=== PATIENT | male | born 1980 | race Caucasian/White ===

== ENCOUNTER → 2017-06-12 16:27 | Outpatient (CLI) | payer OTHER, SELFPAY ==
[2017-06-12 16:45] LABS: Basophils # 0.1 K/mm3 (0-0.2); Basophils % 0.7 % (0.1-2.0); Eosinophils # 0.5 K/mm3 (0.0-0.4); Eosinophils % 4.9 % (0.1-12.0); Hematocrit 46.5 % (42.0-52.0); Hemoglobin 15.2 g/dL (14.1-18.0); Lymphocytes # 1.9 K/mm3 (0.7-4.5); Lymphocytes % 18.8 K/mm3 (10-50); Mean Corpuscular HGB Conc 32.7 g/dL (31.8-35.4); Mean Corpuscular Hemoglobin 31.8 pg (27.0-31.2); Mean Corpuscular Volume 97.1 fl (80-94); Mean Platelet Volume 8.4 fl (7.4-10.4); Monocytes # 0.5 K/mm3 (0.1-1.0); Monocytes % 4.4 % (1.7-9.3); Neutrophils # 7.2 K/mm3 (1.8-7.8); Neutrophils % 71.1 % (37.0-80.0); Platelet Count 198 K/mm3 (142-424); Red Blood Count 4.79 M/mm3 (4.60-6.20); Red Cell Distribution Width 12.7 % (11.5-17.5); White Blood Count 10.1 K/mm3 (4.8-10.8)
[2017-06-12 18:13] LABS: Erythrocyte Sedimentation Rate 10 mm/hr (0-15)
[2017-06-12 19:47] LABS: Alanine Aminotransferase 32 U/L (12-78); Albumin Level 3.8 gm/dL (3.4-5.0); Alkaline Phosphatase 73 U/L (46-116); Anion Gap 14.6 mEq/L (5-15); Bilirubin,Total 0.4 mg/dL (0.2-1.0); Blood Urea Nitrogen 13 mg/dL (7-18); Calcium 8.5 mg/dL (8.5-10.1); Carbon Dioxide 27 mmol/L (21.0-32.0); Chloride 105 mmol/L (98-107); Creatinine,Serum 1.01 mg/dL (0.70-1.30); Estimated Glomerular Filt Rate 83 ml/min (>60); GFR (African American) 101 ML/MIN (>60); Globulin 3.7 gm/dl (1.3-3.2); Glucose 76 mg/dL (74-106); Sodium 142 mmol/L (136-145); Total Protein,Serum 7.5 gm/dL (6.4-8.2)
[2017-06-12 20:01] LABS: Aspartate Amino Transferase 23 U/L (15-37); C-Reactive Protein < 0.2 mg/L (0.0-0.9); Potassium 4.6 mmoL/L (3.5-5.1)
== END ==
PROVIDERS: Family Provider Physician Assistant; PCP Family Medicine; Visit Provider Podiatrist
DX: L03.90 Cellulitis, unspecified (principal)
CPT/HCPCS: 36415; 80053; 85025; 85651; 86140

== ENCOUNTER → 2017-10-08 15:19 | Outpatient (POV) | payer OTHER, SELFPAY | PROVIDERS: Family Provider Physician Assistant; PCP Family Medicine | DX: Z00.00 Encounter for general adult medical examination without abnormal findings (principal) ==

== ENCOUNTER → 2018-08-19 08:14 | Outpatient (CLI) | payer OTHER, SELFPAY ==
--- NOTE | 2018-08-19 08:20 | US_ITS ---
US abdomen limited HISTORY: Right upper quadrant pain chest pain 5 days. ORDERING PHYSICIAN: Amy Ruiz PATIENT AGE: 38 years Comparison: None no comparison studies Procedure Sagittal, transverse and decubitus imaging of the gallbladder was performed. Findings GALLBLADDER - borderline distended gallbladder but does not appear to be tense or inflamed. Phrygian cap. No gallstones. Trace sludge. No discrete. Normal/Upper normal gallbladder wall thickness in some areas. Common duct is normal in diameter. Liver: . Liver appears satisfactory. No focal lesions. No biliary ductal dilatation. Portal vein normal caliber & normal direction flow. Common duct appears normal diameter. Pancreas: Not optimally visualized but overall unremarkable Right kidney: Normal size right kidney with cortex well-maintained. 9.9 cm length.. No hydronephrosis. IMPRESSION: 1. Gallbladder. No gallstones. Trace sludge. Borderline distended gallbladder 2. Liver, right kidney unremarkable. Common duct normal.
== END ==
PROVIDERS: PCP Family Medicine; Visit Provider Nurse Practitioner Family
DX: R10.10 Upper abdominal pain, unspecified (principal)
CPT/HCPCS: 76705

== ENCOUNTER → 2018-08-27 10:07 | Outpatient (CLI) | payer OTHER, SELFPAY ==
--- NOTE | 2018-08-27 10:14 | NM_ITS ---
NM hepatobiliary w pharm HISTORY: Right upper quadrant pain ITS.REASON: ABNORMAL US GB ORDERING PHYSICIAN: Amy Ruiz PATIENT AGE: 38 years COMPARISON: None DOSE: 7.92 mci TC choletec 1.7mcg of cck Injected into lt ant FINDINGS: Homogeneous activity is present within the hepatic parenchyma. Activity is present in the gallbladder by 10 minutes. Activity is present in the small bowel by 45 minutes. The gallbladder ejection fraction is calculated to be 99% The patient did not report pain or other symptoms during CCK infusion. IMPRESSION: Unremarkable hepatobiliary scan and gallbladder ejection fraction. No evidence of common or cystic duct obstruction with normal gallbladder ejection fraction
== END ==
PROVIDERS: PCP Family Medicine; Visit Provider Nurse Practitioner Family
DX: R93.2 Abnormal findings on diagnostic imaging of liver and biliary tract (principal)
CPT/HCPCS: 78227; A9537; J2805

== ENCOUNTER 2019-11-09 13:28 | Emergency (ER) | payer OTHER, SELFPAY ==
[2019-11-09 13:31] VITALS: BP 148/96; PULSE 83; RESP 18; TEMP 36.8; O2SAT 100; BMI 29.0
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
[2019-11-09 15:09] VITALS: BP 148/96; PULSE 83; RESP 18; TEMP 36.8; O2SAT 100
== END 2019-11-09 15:10 | disposition home or self-care (01) ==
PROVIDERS: Emergency Provider Nurse Practitioner; PCP Internal Medicine Adolescent Medicine
DX: R07.81 Pleurodynia (principal); I10 Essential (primary) hypertension; K21.9 Gastro-esophageal reflux disease without esophagitis; F17.210 Nicotine dependence, cigarettes, uncomplicated
CPT/HCPCS: 71101; 99201